=== PATIENT | male | born 1955 | race Hispanic/Latino ===

== ENCOUNTER 2018-11-21 03:13 | Inpatient (IN) | payer MEDICARE ==
[2018-11-21] MEDS ORDERED: SUBLIMAZE IV ONE (03:30)
[2018-11-21] MEDS ORDERED: ZOFRAN IV ONE (03:30)
--- NOTE | 2018-11-21 03:41 | Emergency Department Report ---
HPI - General Chief Complaint: Fall Time Seen by Provider: 11/21/18 03:19 - HPI HPI: Room 18 Patient is a 63-year-old male presenting with a chief complaint cough and pleurisy. Patient states he was diagnosed with pneumonia approximately 1 month ago. Patient states for one month has had a cough productive of sputum as well as some pleurisy. Patient denies fever or rhinorrhea. Patient reportedly lost his footing today outside of his personal nursing home and he fell injuring his back and left forearm. Patient denies loss of consciousness or head injury Location: Lungs, see above Duration: Month Quality: Pleurisy Severity: Moderate Modifying factors: [see above] Context: [see above] Mode of transportation: [not driving] ED Past Medical Hx - Past Medical History Hx Hypertension: Yes Hx Heart Attack/AMI: Yes (x 2) Hx Asthma: Yes Hx COPD: Yes Additional medical history: pneumonia 6 yrs. ago, herniated disc, hep c, MRSA - Surgical History Additional Surgical History: hernia repair, back surgery, rotator cuff repair - Family History Family history: no significant - Social History Smoking Status: Current Every Day Smoker (1/3 pack per day) Substance Use Type: None (denies illicit drug use), Alcohol (rarely) - Medications Home Medications: Home Medications Medication Instructions Recorded Confirmed Last Taken Type ALBUTEROL Inhaler(NF) [VENTOLIN 1 puff IH DAILY 06/26/18 06/26/18 11/20/18 History Inhaler(NF)] Multivit-Mins/Iron/Folic/Lycop 1 each PO DAILY 06/26/18 06/26/18 11/20/18 History [Centrum Men's Tablet] Triamcinolone Aceton 0.1% (Nf) 1 applic TP BID 06/26/18 06/26/18 11/20/18 History [Kenalog (NF)] ALBUTEROL NEB's [Proventil 0.083% 2.5 mg IH Q4HRT PRN #100 nebu 06/30/18 11/20/18 Rx NEBS] Aspirin [Aspirin TAB] 325 mg PO QDAY #30 tablet 06/30/18 11/20/18 Rx Furosemide [Lasix TAB] 20 mg PO QDAY #30 tablet 06/30/18 11/20/18 Rx Ipratropium/Albuterol Sulfate 1 ampul IH QIDRT #60 ampul.neb 06/30/18 11/20/18 Rx [DUONEB *Not for PRN Use*] Losartan [Cozaar] 50 mg PO QDAY #30 tablet 06/30/18 11/20/18 Rx Methadone [Dolophine] 60 mg PO BID #6 tablet 06/30/18 11/20/18 Rx Potassium Chloride [K-Dur] 10 meq PO QDAY #30 tablet 06/30/18 11/20/18 Rx Sertraline [Zoloft] 50 mg PO DAILY #30 tablet 06/30/18 11/20/18 Rx Zolpidem [Ambien] 5 mg PO QHS PRN #30 tablet 06/30/18 11/20/18 Rx oxyCODONE /ACETAMINOPHEN [Percocet 1 tab PO Q6H PRN #12 tablet 06/30/18 11/20/18 Rx 5/325 mg] predniSONE [Deltasone] 20 mg PO QDAY #30 tablet 06/30/18 11/20/18 Rx ED Review of Systems ROS: Stated complaint: FALL Other details as noted in HPI Constitutional: denies: fever Eyes: denies: eye pain Respiratory: cough, shortness of breath Cardiovascular: denies: chest pain Endocrine: no symptoms reported Gastrointestinal: denies: abdominal pain Genitourinary: denies: dysuria Musculoskeletal: back pain Neurological: denies: headache Physical Exam - Physical Exam Vital Signs: Vital Signs 11/21/18 03:23 Temperature 98.4 F Pulse Rate 123 H Respiratory 21 Rate Blood Pressure 118/79 O2 Sat by Pulse 88 Oximetry Physical Exam: GENERAL: The patient is well-developed well-nourished male lying on stretcher not appearing to be in acute distress. [] HEENT: Normocephalic. Atraumatic. Extraocular motions are intact. Patient has moist mucous membranes. NECK: Supple. Trachea midline CHEST/LUNGS: Clear to auscultation, breath sounds equal bilaterally. There is no respiratory distress noted. HEART/CARDIOVASCULAR: Regular. There is tachycardia. There is no gallop rub or murmur. ABDOMEN: Abdomen is soft, nontender. Patient has normal bowel sounds. There is no abdominal distention. SKIN: There is no rash. There is no edema. There is no diaphoresis. NEURO: The patient is awake, alert, and oriented. The patient is cooperative. The patient has no focal neurologic deficits. The patient has normal speech MUSCULOSKELETAL: There is no evidence of acute injury. ED Course Vital Signs 11/21/18 03:23 Temperature 98.4 F Pulse Rate 123 H Respiratory 21 Rate Blood Pressure 118/79 O2 Sat by Pulse 88 Oximetry ED Medical Decision Making - Lab Data Result diagrams: 11/21/18 03:51 11/21/18 03:51 Laboratory Tests 11/21/18 11/21/18 11/21/18 03:51 03:51 03:51 WBC 24.0 H RBC 4.45 Hgb 13.5 Hct 42.6 MCV 96 H MCH 30 MCHC 32 RDW 17.2 H Plt Count 200 PT 14.8 INR 1.12 APTT 27.5 POC ABG pH POC ABG pCO2 POC ABG pO2 POC ABG HCO3 POC ABG Total CO2 POC ABG O2 Sat POC ABG Base Excess FiO2 Sodium 135 L Potassium 4.1 Chloride 92.2 L Carbon Dioxide 29 Anion Gap 18 BUN 17 Creatinine 0.8 Estimated GFR > 60 BUN/Creatinine Ratio 21 Glucose 158 H Calcium 9.2 Total Creatine Kinase 41 L CK-MB (CK-2) 1.3 CK-MB (CK-2) Rel Index 3.1 Troponin T < 0.010 NT-Pro-B Natriuret Pep 384.6 11/21/18 03:56 WBC RBC Hgb Hct MCV MCH MCHC RDW Plt Count PT INR APTT POC ABG pH 7.417 POC ABG pCO2 48.1 H POC ABG pO2 48 L POC ABG HCO3 31.0 POC ABG Total CO2 32 POC ABG O2 Sat 83 POC ABG Base Excess 6 FiO2 32 Sodium Potassium Chloride Carbon Dioxide Anion Gap BUN Creatinine Estimated GFR BUN/Creatinine Ratio Glucose Calcium Total Creatine Kinase CK-MB (CK-2) CK-MB (CK-2) Rel Index Troponin T NT-Pro-B Natriuret Pep - EKG Data -: EKG Interpreted by Me EKG shows normal: sinus rhythm Rate: tachycardia (117 bpm) - EKG Data When compared to previous EKG there are: previous EKG unavailable Interpretation: other (no ischemic changes seen) - Radiology Data Radiology results: report reviewed (CT Chest, CXR), image reviewed (Ct Chest, CXR) interpreted by me: CXR- Left lung mass. No ptx [facility] [address] [place] [address] Cat Scan Report Signed Patient: LIBERTY PUGA JR MR#: [id number] : 1955 Acct:[id number] Age/Sex: 63 / M ADM Date: 11/21/18 Loc: ED Attending Dr: Ordering Physician: MONIQUE GONZALEZ MD Date of Service: 11/21/18 Procedure(s): CT chest wo con Accession Number(s): [id number] cc: MONIQUE GONZALEZ MD FINAL REPORT EXAM: CT CHEST WO CON HISTORY: shortness of breath, left hemithorax mass TECHNIQUE: Routine axial imaging was obtained of the thorax without IV contrast with sagittal and coronal reconstructions. Comparison is made to the previous study of 06/28/2018. FINDINGS: The previous noted 2.9 cm juxtapleural mass in the lingula has enlarged dramatically since the previous examination. It now measures 9.4 cm x 7 cm x 9.2 cm. There are no additional pulmonary masses. The lungs otherwise reveal severe emphysematous changes with bibasilar atelectasis. Pleural fluid is not seen. The heart size is normal. Pericardial fluid is not seen. There is no evidence of hilar or mediastinal adenopathy. The thoracic aorta is normal in caliber. At the thoracic inlet the thyroid gland appears normal. In the upper abdomen the adrenal glands appear normal. There is a stable 4.0 cm cyst in the right kidney. The skeletal structures reveal stable chronic compression fractures in the mid thoracic spine and at the thoracolumbar junction. IMPRESSION: Interval enlargement of the previously described juxtapleural mass in the lingula since 06/28/2018. It now measures 9.4 cm by 7 cm x 9.2 cm and is compatible with malignancy No evidence of mediastinal or hilar adenopathy. Severe emphysematous changes in both lungs with mild bibasilar atelectasis. Pleural fluid is not identified. Stable 4 cm in diameter cortical cyst in the right kidney. Stable chronic compression fractures in the mid thoracic spine and at the thoracolumbar junction. Transcribed By: NAVEEN Dictated By: ANETTE DIAZ MD Electronically Authenticated By: ANETTE DIAZ MD Signed Date/Time: 11/21/18609 DD/ 8 TD/TT: 11/21/18608 - Differential Diagnosis pneumonia, pleurisy, PE, pericarditis Critical care attestation.: If time is entered above; I have spent that time in minutes in the direct care o f this critically ill patient, excluding procedure time. ED Disposition Clinical Impression: Hypoxia, Shortness of breath, Lung mass, Leukocytosis Disposition: OP ADMIT IP TO THIS HOSP Is pt being admited?: Yes Does the pt Need Aspirin: Yes Condition: Fair Time of Disposition: 05:26 (hospitalist paged (Dr Kathy Lagos))
[2018-11-21 04:11] LABS: Hematocrit 42.6 % (35.5-45.6); Hemoglobin 13.5 gm/dl (11.8-15.2); Mean Corpuscular HGB Conc 32 % (32-34); Mean Corpuscular Volume 96 fl (84-94); Platelet Count 200 K/mm3 (140-440); Red Blood Count 4.45 M/mm3 (3.65-5.03); Red Cell Distribution Width 17.2 % (13.2-15.2)
--- NOTE | 2018-11-21 04:19 | XRay Report ---
FINAL REPORT EXAM: XR CHEST 1V AP HISTORY: cough, shortness of breath TECHNIQUE: A portable upright view the chest was obtained and compared to the study of 05/22/2018. FINDINGS: Since the previous study there is now a 10.4 cm round masslike structure superimposed over the middle 3rd of the left hemithorax. The heart size is normal. The lungs are not congested. Pleural fluid is not seen. There EKG leads overlying the chest wall. The skeletal structures reveal generalized osteop enia. IMPRESSION: 10.4 cm round masslike structure superimposed over the middle 3rd of the left hemithorax. This has de veloped since the previous study. Computed tomography of the chest with IV contrast recommended for f jeannette evaluation.
[2018-11-21 04:23] LABS: INR 1.12 (0.87-1.13)
[2018-11-21 04:24] LABS: Partial Thromboplastin Time 27.5 Sec. (24.2-36.6)
[2018-11-21 04:41] LABS: Creatine Kinase MB 1.3 ng/mL (0.0-4.0)
[2018-11-21 04:42] LABS: BUN/Creatinine Ratio 21; Blood Urea Nitrogen 17 mg/dL (9-20); Calcium 9.2 mg/dL (8.4-10.2); Hemolysis Index 10
[2018-11-21] MEDS ORDERED: ROCEPHIN/NS 1 GM/50 ML 1 GM/50 ML BAG IV ONE (05:26)
--- NOTE | 2018-11-21 06:10 | Cat Scan Report ---
FINAL REPORT EXAM: CT CHEST WO CON HISTORY: shortness of breath, left hemithorax mass TECHNIQUE: Routine axial imaging was obtained of the thorax without IV contrast with sagittal and co roya reconstructions. Comparison is made to the previous study of 06/28/2018. FINDINGS: The previous noted 2.9 cm juxtapleural mass in the lingula has enlarged dramatically since the previo us examination. It now measures 9.4 cm x 7 cm x 9.2 cm. There are no additional pulmonary masses. The lungs otherwise reveal severe emphysematous changes with bibasilar atelectasis. Pleural fluid is not seen. The heart size is normal. Pericardial fluid is not seen. There is no evidence of hilar or medi astinal adenopathy. The thoracic aorta is normal in caliber. At the thoracic inlet the thyroid gland appears normal. In the upper abdomen the adrenal glands appear normal. There is a stable 4.0 cm cyst in the right kidney. The skeletal structures reveal stable chronic compression fractures in the mid t horacic spine and at the thoracolumbar junction. IMPRESSION: Interval enlargement of the previously described juxtapleural mass in the lingula since 06/28/2018. I t now measures 9.4 cm by 7 cm x 9.2 cm and is compatible with malignancy No evidence of mediastinal or hilar adenopathy. Severe emphysematous changes in both lungs with mild bibasilar atelectasis. Pleural fluid is not iden tified. Stable 4 cm in diameter cortical cyst in the right kidney. Stable chronic compression fractures in the mid thoracic spine and at the thoracolumbar junction.
[2018-11-21] MEDS ORDERED: PROVENTIL IH PRN (06:46)
[2018-11-21 07:48] LABS: Band Neutrophils # (Manual) 5.5 K/mm3; Basophils % (Manual) 0 % (0.0-1.8); Total Cells Counted 100
[2018-11-21 07:49] LABS: Anisocytosis 1+; Macrocytosis 1+; Target Cells Rare
[2018-11-21 10:39] VITALS: BP 103/69
--- NOTE | 2018-11-21 15:53 | Consultation ---
History of Present Illness - Reason for Consult Consult date: 11/21/18 Requesting physician: MONIQUE GONZALEZ - History of Present Illness Patient is a 63-year-old male also some diagnosis of non-small cell carcinoma, COPD, hypertension, chronic pain syndrome, chronic artery disease also admitted in the hospital last year with concern for CVA but at that time signed into hospice. presenting to the hospital following mechanical fall and exacerbated respiratory distress. Presentation patient reports improvement of the time of my examination reports that he would rather be discharged to continue with hospice with discussed with the hospice team who agreed that the patient can be transferred to the inpatient unit to continue observation and management I did discuss the findings of prior biopsy with the patient with a diagnosis of non-small cell carcinoma the patient verbalizes understanding and is currently stable for transfer. Past History Past Medical History: COPD, hypertension, hyperlipidemia, other (vitals small ce ll cancer) Past Surgical History: No surgical history Social history: smoking. denies: IV drug use Family history: no significant family history Medications and Allergies Allergies Allergy/AdvReac Type Severity Reaction Status Date / Time erythromycin base Allergy Unknown Verified 09/30/15 11:58 [Erythromycin Base] Iodinated Contrast- Oral and Allergy Anaphylaxis Verified 11/21/18 04:55 IV Dye divalproex sodium AdvReac Unknown Verified 09/30/15 11:58 [From Depakote] Home Medications Medication Instructions Recorded Confirmed Last Taken Type ALBUTEROL Inhaler(NF) [VENTOLIN 1 puff IH DAILY 06/26/18 06/26/18 11/20/18 History Inhaler(NF)] Multivit-Mins/Iron/Folic/Lycop 1 each PO DAILY 06/26/18 06/26/18 11/20/18 History [Centrum Men's Tablet] Triamcinolone Aceton 0.1% (Nf) 1 applic TP BID 06/26/18 06/26/18 11/20/18 History [Kenalog (NF)] ALBUTEROL NEB's [Proventil 0.083% 2.5 mg IH Q4HRT PRN #100 nebu 06/30/18 11/20/18 Rx NEBS] Aspirin [Aspirin TAB] 325 mg PO QDAY #30 tablet 06/30/18 11/20/18 Rx Furosemide [Lasix TAB] 20 mg PO QDAY #30 tablet 06/30/18 11/20/18 Rx Ipratropium/Albuterol Sulfate 1 ampul IH QIDRT #60 ampul.neb 06/30/18 11/20/18 Rx [DUONEB *Not for PRN Use*] Losartan [Cozaar] 50 mg PO QDAY #30 tablet 06/30/18 11/20/18 Rx Methadone [Dolophine] 60 mg PO BID #6 tablet 06/30/18 11/20/18 Rx Potassium Chloride [K-Dur] 10 meq PO QDAY #30 tablet 06/30/18 11/20/18 Rx Sertraline [Zoloft] 50 mg PO DAILY #30 tablet 06/30/18 11/20/18 Rx Zolpidem [Ambien] 5 mg PO QHS PRN #30 tablet 06/30/18 11/20/18 Rx oxyCODONE /ACETAMINOPHEN [Percocet 1 tab PO Q6H PRN #12 tablet 06/30/18 11/20/18 Rx 5/325 mg] predniSONE [Deltasone] 20 mg PO QDAY #30 tablet 06/30/18 11/20/18 Rx levoFLOXacin [Levaquin] 750 mg PO QDAY #7 tablet 11/21/18 Unknown Rx Review of Systems Constitutional: anorexia, fatigue Cardiovascular: dyspnea on exertion, no shortness of breath Respiratory: cough, no shortness of breath, no wheezing Gastrointestinal: no nausea, no vomiting, no diarrhea, no change in bowel habits Exam - Physical Exam Narrative exam: VITAL SIGNS: Reviewed. GENERAL: The patient appeared lethergic and cachectiv. Vital signs as documented. HEAD: No signs of head trauma. EYES: Pupils are equal. Extraocular motions intact. EARS: Hearing grossly intact. MOUTH: Oropharynx is normal. NECK: No adenopathy, no JVD. CHEST: Chest with diminshed breath sounds bilaterally. No wheezes, rales, or rhonchi. CARDIAC: Regular rate and rhythm. S1 and S2, without murmurs, gallops, or rubs. VASCULAR: No Edema. Peripheral pulses normal and equal in all extremities. ABDOMEN: Soft, without detectable tenderness. No sign of distention. No rebound or guarding, and no masses palpated. Bowel Sounds normal. MUSCULOSKELETAL: Good range of motion of all major joints. Extremities without clubbing, cyanosis or edema. NEUROLOGIC EXAM: Alert and oriented x 3. No focal sensory or strength deficits. Speech normal. Follows commands. PSYCHIATRIC: Mood normal. SKIN: No rash or lesions. - Constitutional Vitals: Temp Pulse Resp BP Pulse Ox 97.9 F 90 20 103/69 95 11/21/18 10:20 11/21/18 10:20 11/21/18 10:20 11/21/18 10:20 11/21/18 10:20 Results - Labs CBC & Chem 7: 11/21/18 03:51 11/21/18 03:51 Labs: Abnormal lab results 11/21/18 11/21/18 11/21/18 Range/Units 03:51 03:51 03:56 WBC 24.0 H (4.5-11.0) K/mm3 MCV 96 H (84-94) fl RDW 17.2 H (13.2-15.2) % Lymphocytes % (Manual) 5.0 L (13.4-35.0) % Monocytes % (Manual) 8.0 H (0.0-7.3) % Eosinophils % (Manual) 5.0 H (0.0-4.3) % Seg Neutrophils # Man 14.2 H (1.8-7.7) K/mm3 Monocytes # (Manual) 1.9 H (0.0-0.8) K/mm3 Eosinophils # (Manual) 1.2 H (0.0-0.4) K/mm3 POC ABG pCO2 48.1 H (35-45) POC ABG pO2 48 L (80-105) Sodium 135 L (137-145) mmol/L Chloride 92.2 L (98-107) mmol/L Glucose 158 H (75-100) mg/dL Total Creatine Kinase 41 L (55-170) units/L - Imaging and Cardiology CT scan - chest: image reviewed (lung mass) Assessment and Plan Patient is a 63-year-old male also some diagnosis of non-small cell carcinoma, COPD, hypertension, chronic pain syndrome, chronic artery disease also admitted in the hospital last year with concern for CVA but at that time signed into hospice. presenting to the hospital following mechanical fall and exacerbated respiratory distress. Presentation patient reports improvement of the time of my examination reports that he would rather be discharged to continue with hospice with discussed with the hospice team who agreed that the patient can be transferred to the inpatient unit to continue observation and management I did discuss the findings of prior biopsy with the patient with a diagnosis of non-small cell carcinoma the patient verbalizes understanding and is currently stable for transfer. Pneumonia Non small cell carcenoma No evidence of sepsis Acute COPD exacerbation-Resolving Severe of Emphysema HTN chronic pain syndrom CAD Hepatitis C T9 and lumbar impression fractures Plan patient palced on levaquin per discussion with Case management Patient can be transferred to the inpatient hospice unit. plan discussed with the patient, nursing and case management and all agreeable with the plan
--- NOTE | 2018-12-14 07:33 | Addendum Note ---
- Addendum Date: 12/14/18 Note: - History of Present Illness Patient is a 63-year-old male also some diagnosis of non-small cell carcinoma, COPD, hypertension, chronic pain syndrome, chronic artery disease also admitted in the hospital last year with concern for CVA but at that time signed into hospice. presenting to the hospital following mechanical fall and exacerbated respiratory distress. Presentation patient reports improvement of the time of my examination reports that he would rather be discharged to continue with hospice with discussed with the hospice team who agreed that the patient can be transferred to the inpatient unit to continue observation and management I did discuss the findings of prior biopsy with the patient with a diagnosis of non-small cell carcinoma the patient verbalizes understanding and is currently stable for transfer. Past History Past Medical History: COPD, hypertension, hyperlipidemia, other (vitals small cell cancer) Past Surgical History: No surgical history Social history: smoking. denies: IV drug use Family history: no significant family history Medications and Allergies Allergies Allergy/AdvReac Type Severity Reaction Status Date / Time erythromycin base Allergy Unknown Verified 09/30/15 11:58 [Erythromycin Base] Iodinated Contrast- Oral and Allergy Anaphylaxis Verified 11/21/18 04:55 IV Dye divalproex sodium AdvReac Unknown Verified 09/30/15 11:58 [From Depakote] Home Medications Medication Instructions Recorded Confirmed Last Taken Type ALBUTEROL Inhaler(NF) [VENTOLIN 1 puff IH DAILY 06/26/18 06/26/18 11/20/18 History Inhaler(NF)] Multivit-Mins/Iron/Folic/Lycop 1 each PO DAILY 06/26/18 06/26/18 11/20/18 Hi story [Centrum Men's Tablet] Triamcinolone Aceton 0.1% (Nf) 1 applic TP BID 06/26/18 06/26/18 11/20/18 History [Kenalog (NF)] ALBUTEROL NEB's [Proventil 0.083% 2.5 mg IH Q4HRT PRN #100 nebu 06/30/18 11/20/18 Rx NEBS] Aspirin [Aspirin TAB] 325 mg PO QDAY #30 tablet 06/30/18 11/20/18 Rx Furosemide [Lasix TAB] 20 mg PO QDAY #30 tablet 06/30/18 11/20/18 Rx Ipratropium/Albuterol Sulfate 1 ampul IH QIDRT #60 ampul.neb 06/30/18 11/20/18 Rx [DUONEB *Not for PRN Use*] Losartan [Cozaar] 50 mg PO QDAY #30 tablet 06/30/18 11/20/18 Rx Methadone [Dolophine] 60 mg PO BID #6 tablet 06/30/18 11/20/18 Rx Potassium Chloride [K-Dur] 10 meq PO QDAY #30 tablet 06/30/18 11/20/18 Rx Sertraline [Zoloft] 50 mg PO DAILY #30 tablet 06/30/18 11/20/18 Rx Zolpidem [Ambien] 5 mg PO QHS PRN #30 tablet 06/30/18 11/20/18 Rx oxyCODONE /ACETAMINOPHEN [Percocet 1 tab PO Q6H PRN #12 tablet 06/30/18 11/20/18 Rx 5/325 mg] predniSONE [Deltasone] 20 mg PO QDAY #30 tablet 06/30/18 11/20/18 Rx levoFLOXacin [Levaquin] 750 mg PO QDAY #7 tablet 11/21/18 Unknown Rx Review of Systems Constitutional: anorexia, fatigue Cardiovascular: dyspnea on exertion, no shortness of breath Respiratory: cough, no shortness of breath, no wheezing Gastrointestinal: no nausea, no vomiting, no diarrhea, no change in bowel habits Exam - Physical Exam Narrative exam: VITAL SIGNS: Reviewed. GENERAL: The patient appeared lethergic and cachectiv. Vital signs as documented. HEAD: No signs of head trauma. EYES: Pupils are equal. Extraocular motions intact. EARS: Hearing grossly intact. MOUTH: Oropharynx is normal. NECK: No adenopathy, no JVD. CHEST: Chest with diminshed breath sounds bilaterally. No wheezes, rales, or rhonchi. CARDIAC: Regular rate and rhythm. S1 and S2, without murmurs, gallops, or rubs. VASCULAR: No Edema. Peripheral pulses normal and equal in all extremities. ABDOMEN: Soft, without detectable tenderness. No sign of distention. No rebound or guarding, and no masses palpated. Bowel Sounds normal. MUSCULOSKELETAL: Good range of motion of all major joints. Extremities without clubbing, cyanosis or edema. NEUROLOGIC EXAM: Alert and oriented x 3. No focal sensory or strength deficits. Speech normal. Follows commands. PSYCHIATRIC: Mood normal. SKIN: No rash or lesions. - Constitutional Vitals: Temp Pulse Resp BP Pulse Ox 97.9 F 90 20 103/69 95 11/21/18 10:20 11/21/18 10:20 11/21/18 10:20 11/21/18 10:20 11/21/18 10:20 Results - Labs CBC & Chem 7: 11/21/18 03:51 11/21/18 03:51 Labs: Abnormal lab results 11/21/18 11/21/18 11/21/18 Range/Units 03:51 03:51 03:56 WBC 24.0 H (4.5-11.0) K/mm3 MCV 96 H (84-94) fl RDW 17.2 H (13.2-15.2) % Lymphocytes % (Manual) 5.0 L (13.4-35.0) % Monocytes % (Manual) 8.0 H (0.0-7.3) % Eosinophils % (Manual) 5.0 H (0.0-4.3) % Seg Neutrophils # Man 14.2 H (1.8-7.7) K/mm3 Monocytes # (Manual) 1.9 H (0.0-0.8) K/mm3 Eosinophils # (Manual) 1.2 H (0.0-0.4) K/mm3 POC ABG pCO2 48.1 H (35-45) POC ABG pO2 48 L (80-105) Sodium 135 L (137-145) mmol/L Chloride 92.2 L (98-107) mmol/L Glucose 158 H (75-100) mg/dL Total Creatine Kinase 41 L (55-170) units/L - Imaging and Cardiology CT scan - chest: image reviewed (lung mass) Assessment and Plan Patient is a 63-year-old male also some diagnosis of non-small cell carcinoma, COPD, hypertension, chronic pain syndrome, chronic artery disease also admitted in the hospital last year with concern for CVA but at that time signed into hospice. presenting to the hospital following mechanical fall and exacerbated respiratory distress. Presentation patient reports improvement of the time of my examination reports that he would rather be discharged to continue with hospice with discussed with the hospice team who agreed that the patient can be transferred to the inpatient unit to continue observation and management I did discuss the findings of prior biopsy with the patient with a diagnosis of non-small cell carcinoma the patient verbalizes understanding and is currently stable for transfer. Pneumonia Non small cell carcenoma No evidence of sepsis Acute COPD exacerbation-Resolving Severe of Emphysema HTN chronic pain syndrom CAD Hepatitis C T9 and lumbar impression fractures Plan patient placed on levaquin per discussion with Case management Patient can be transferred to the inpatient hospice unit BUT Following Hospice team arrangement with social science instructor, and based on their assessment, patient was discharged home to be followed with Hospice team
== END 2018-11-21 09:06 | disposition hospice, home (50) | DRG 180 ==
LOC: ED 03:13 → 3A 06:45
PROVIDERS: ADMIT Internal Medicine; ATTEND Internal Medicine
PROC: 4A033R1 Measurement of Arterial Saturation, Peripheral, Percutaneous Approach (ICD-10-PCS; principal; 2018-11-21)
DX: C34.90 Malignant neoplasm of unspecified part of unspecified bronchus or lung (principal); J18.9 Pneumonia, unspecified organism; S22.078A Other fracture of T9-T10 vertebra, initial encounter for closed fracture; S32.008A Other fracture of unspecified lumbar vertebra, initial encounter for closed fracture; J44.1 Chronic obstructive pulmonary disease with (acute) exacerbation; J44.0 Chronic obstructive pulmonary disease with (acute) lower respiratory infection; D72.829 Elevated white blood cell count, unspecified; I10 Essential (primary) hypertension; G89.4 Chronic pain syndrome; I25.10 Atherosclerotic heart disease of native coronary artery without angina pectoris; B19.20 Unspecified viral hepatitis C without hepatic coma; F17.200 Nicotine dependence, unspecified, uncomplicated; R09.02 Hypoxemia; Z91.041 Radiographic dye allergy status; W18.39XA Other fall on same level, initial encounter; Z88.1 Allergy status to other antibiotic agents; Z79.899 Other long term (current) drug therapy; Z79.82 Long term (current) use of aspirin; Z86.14 Personal history of Methicillin resistant Staphylococcus aureus infection; I25.2 Old myocardial infarction; Z87.01 Personal history of pneumonia (recurrent); Z72.89 Other problems related to lifestyle; Y93.89 Activity, other specified; Y92.098 Other place in other non-institutional residence as the place of occurrence of the external cause; Y99.8 Other external cause status
CPT/HCPCS: 36415; 71045; 71250; 80048; 82550; 82553; 82803; 83880; 84484; 85007; 85025; 85610; 85730; 93005; 93010; G0378; J0696; J2405; J3010

== ENCOUNTER 2018-11-27 21:23 | Emergency (ER) | payer MEDICARE ==
[2018-11-27] MEDS ORDERED: MORPHINE IV ONE (21:52)
[2018-11-27] MEDS ORDERED: DUONEB *Not for PRN Use IH ONE (21:52)
--- NOTE | 2018-11-27 21:56 | Emergency Department Report ---
HPI - General Chief Complaint: Seizure Time Seen by Provider: 11/27/18 21:27 - HPI HPI: 63-year-old male presents to the emergency department via EMS from his personal fpc with complaint of generalized body pains, nausea, coughing, and he says he is having "withdrawal from my pain meds." Patient says that he is on morphine and methadone daily for his chronic back pain and emphysema. He says that his landlord allegedly "stole my meds" by signing for them and not giving them to him. He says that the landlord denies this. Patient also says that he is dealing with pneumonia that he got diagnosed with about 6 weeks ago. The patient was here about one week ago for some coughing, shortness of breath and was discharged home after a negative workup. Patient does have a history of chronic back pain, COPD/emphysema, hypertension, previous A. fib. ED Past Medical Hx - Past Medical History Hx Hypertension: Yes Hx Heart Attack/AMI: Yes (x 2) Hx Congestive Heart Failure: No Hx Diabetes: No Hx Asthma: Yes Hx COPD: Yes Hx HIV: No Additional medical history: pneumonia 6 yrs. ago, herniated disc, hep c, MRSA - Surgical History Additional Surgical History: hernia repair, back surgery, rotator cuff repair - Social History Smoking Status: Current Every Day Smoker Substance Use Type: None - Medications Home Medications: Home Medications Medication Instructions Recorded Confirmed Last Taken Type ALBUTEROL Inhaler(NF) [VENTOLIN 1 puff IH DAILY 06/26/18 06/26/18 11/20/18 History Inhaler(NF)] Multivit-Mins/Iron/Folic/Lycop 1 each PO DAILY 06/26/18 06/26/18 11/20/18 History [Centrum Men's Tablet] Triamcinolone Aceton 0.1% (Nf) 1 applic TP BID 06/26/18 06/26/18 11/20/18 History [Kenalog (NF)] ALBUTEROL NEB's [Proventil 0.083% 2.5 mg IH Q4HRT PRN #100 nebu 06/30/18 11/20/18 Rx NEBS] Aspirin [Aspirin TAB] 325 mg PO QDAY #30 tablet 06/30/18 11/20/18 Rx Furosemide [Lasix TAB] 20 mg PO QDAY #30 tablet 06/30/18 11/20/18 Rx Ipratropium/Albuterol Sulfate 1 ampul IH QIDRT #60 ampul.neb 06/30/18 11/20/18 Rx [DUONEB *Not for PRN Use*] Losartan [Cozaar] 50 mg PO QDAY #30 tablet 06/30/18 11/20/18 Rx Methadone [Dolophine] 60 mg PO BID #6 tablet 06/30/18 11/20/18 Rx Potassium Chloride [K-Dur] 10 meq PO QDAY #30 tablet 06/30/18 11/20/18 Rx Sertraline [Zoloft] 50 mg PO DAILY #30 tablet 06/30/18 11/20/18 Rx Zolpidem [Ambien] 5 mg PO QHS PRN #30 tablet 06/30/18 11/20/18 Rx oxyCODONE /ACETAMINOPHEN [Percocet 1 tab PO Q6H PRN #12 tablet 06/30/18 11/20/18 Rx 5/325 mg] predniSONE [Deltasone] 20 mg PO QDAY #30 tablet 06/30/18 11/20/18 Rx levoFLOXacin [Levaquin] 750 mg PO QDAY #7 tablet 11/21/18 Unknown Rx Nystatin 5 ml PO QID #200 oral.susp 11/28/18 Unknown Rx ED Review of Systems ROS: Stated complaint: PAIN ALL OVER Other details as noted in HPI Comment: All other systems reviewed and negative Constitutional: denies: chills, fever Eyes: denies: eye pain, vision change ENT: denies: ear pain, throat pain Respiratory: cough, shortness of breath Cardiovascular: denies: palpitations, edema Gastrointestinal: nausea. denies: diarrhea Genitourinary: denies: dysuria, discharge Musculoskeletal: back pain, myalgia. denies: joint swelling Skin: denies: rash, lesions Neurological: denies: headache, numbness Physical Exam - Physical Exam Vital Signs: Vital Signs 11/27/18 21:40 Temperature 98.3 F Pulse Rate 101 H Respiratory 16 Rate Blood Pressure 113/77 O2 Sat by Pulse 95 Oximetry Physical Exam: GENERAL: The patient appears thin and frail. HEENT: Normocephalic. Atraumatic. Patient has moist mucous membranes. EYES: Extraocular motions are intact. Pupils are equal and reactive to light bilaterally. The patient has some thrush to the tongue and hard palate. NECK: Supple. Trachea is midline. CHEST/LUNGS: Mild wheezing throughout the chest. No tachypnea or accessory muscle use. There is no respiratory distress noted. HEART/CARDIOVASCULAR: Regular. There is no tachycardia. There is no obvious murmur. ABDOMEN: Abdomen is soft, nontender. Patient has normal bowel sounds. There is no abdominal distention. SKIN: Skin is warm and dry. NEURO: The patient is awake, alert, and cooperative. The patient has no focal neurologic deficits. The patient has normal speech. MUSCULOSKELETAL: There is no tenderness or deformity. There is no evidence of acute injury. ED Course Vital Signs 11/27/18 21:40 Temperature 98.3 F Pulse Rate 101 H Respiratory 16 Rate Blood Pressure 113/77 O2 Sat by Pulse 95 Oximetry - Consultations Consultation #1: The patient told me that the name of his hospice company is [facility]. He was living in a personal fpc and getting a visit from them about once or twice a week. I spoke with a nurse with that hospice company, [employer], who has gotten the patient accepted into their inpatient hospice program. I spoke with the patient and he is pleased with this. [facility] will be here in about 30 minutes. 11/28/18 06:56 ED Medical Decision Making - Lab Data Result diagrams: 11/27/18 22:33 11/28/18 00:54 - EKG Data -: EKG Interpreted by Me EKG shows normal: sinus rhythm, axis, intervals, QRS complexes, ST-T waves Rate: tachycardia (108 bpm) - EKG Data When compared to previous EKG there are: previous EKG unavailable Interpretation: normal EKG (with sinus tach at 108 bpm) - Radiology Data Radiology results: report reviewed EXAM: XR CHEST 1V AP HISTORY: Chest Pain TECHNIQUE: Chest single AP PRIORS: Comparison is dated November 21, 2018 FINDINGS: There is a large left pulmonary mass as previously noted. Cardiac and mediastinal contours are unchanged. Mild blunting of the costophrenic angles noted. Pulmonary vasculature is unremarkable. Overall appearance is stable from prior exam. IMPRESSION: Large left-sided pulmonary mass Findings likely reflecting small bilateral pleural effusions Transcribed By: STAR Dictated By: ELIZABETH BLAKELY MD Electronically Authenticated By: ELIZABETH BLAKELY MD Signed Date/Time: 11/27/18 8756 - Medical Decision Making She came in with complaint of body aches, shortness of breath and what he says his withdrawal from lack of pain medication. He says that he is on methadone and morphine as part of his hospice for his COPD and lung mass. patient has a leukocytosis of 24,000 that is consistent with his previous visit here 1 week ago. Chest x-ray did not show any signs of any pneumonia that appears consistent with his previously known left lung mass. He was given a dose of steroids for some mild bronchospasm as well as a DuoNeb treatment. Patient was given a dose of pain medication. He was reevaluated multiple times over multiple hours and has remained stable and appears to be resting comfortably. The patient is in hospice and I contacted the hospice company [facility] has now arranged for the patient to be transported to an inpatient hospice facility that they run. The patient is pleased with this. He has been given some nystatin swish and spit for some oral thrush. - Differential Diagnosis COPD, malignancy, pneumonia, CHF Critical Care Time: No Critical care attestation.: If time is entered above; I have spent that time in minutes in the direct care of this critically ill patient, excluding procedure time. ED Disposition Clinical Impression: Lung mass, Thrush Chronic obstructive pulmonary disease Qualifiers: COPD type: unspecified COPD Qualified Code(s): J44.9 - Chronic obstructive pulmonary disease, unspecified Disposition: DC/TX-70 ANOTHER TYPE HLTHCARE Is pt being admited?: No Condition: Fair Instructions: Oral Candidiasis (ED), Chronic Obstructive Pulmonary Disease (ED) Prescriptions: Nystatin 5 ml PO QID #200 oral.susp Time of Disposition: 07:04
[2018-11-27 22:57] LABS: Hematocrit 41.2 % (35.5-45.6); Hemoglobin 13.2 gm/dl (11.8-15.2); Mean Corpuscular HGB Conc 32 % (32-34); Mean Corpuscular Volume 98 fl (84-94); Platelet Count 166 K/mm3 (140-440); Red Blood Count 4.22 M/mm3 (3.65-5.03); Red Cell Distribution Width 17.8 % (13.2-15.2)
--- NOTE | 2018-11-27 23:04 | XRay Report ---
FINAL REPORT EXAM: XR CHEST 1V AP HISTORY: Chest Pain TECHNIQUE: Chest single AP PRIORS: Comparison is dated November 21, 2018 FINDINGS: There is a large left pulmonary mass as previously noted. Cardiac and mediastinal contours are unchan ged. Mild blunting of the costophrenic angles noted. Pulmonary vasculature is unremarkable. Overall a ppearance is stable from prior exam. IMPRESSION: Large left-sided pulmonary mass Findings likely reflecting small bilateral pleural effusions
[2018-11-28] MEDS ORDERED: DUONEB *Not for PRN Use IH ONE (00:18)
[2018-11-28 00:24] LABS: BUN/Creatinine Ratio TNR; Blood Urea Nitrogen TNR mg/dL (9-20)
[2018-11-28 00:25] LABS: Alanine Aminotransferase TNR units/L (7-56); Albumin TNR g/dL (3.9-5); Calcium TNR mg/dL (8.4-10.2)
[2018-11-28 00:26] LABS: Hemolysis Index TNR
[2018-11-28 00:28] LABS: Band Neutrophils # (Manual) 0.5 K/mm3; Eosinophils % (Manual) 0 % (0.0-4.3); Total Cells Counted 100
[2018-11-28 00:29] LABS: Anisocytosis 1+; Basophils % (Manual) 0 % (0.0-1.8); Hypochromasia 1+; Macrocytosis 1+; Platelet Estimate Appe
[2018-11-28 01:28] LABS: Alanine Aminotransferase 30 units/L (7-56); Albumin 1.8 g/dL (3.9-5); BUN/Creatinine Ratio 26; Blood Urea Nitrogen 13 mg/dL (9-20); Calcium 8.8 mg/dL (8.4-10.2); Hemolysis Index 73
[2018-11-28] MEDS ORDERED: NACL 0.9% 1000 ML 1,000 ML IV ONE ×2 (01:40→04:52)
[2018-11-28] MEDS ORDERED: SOLU-Medrol IV ONE (04:52)
[2018-11-28 07:39] VITALS: BP 104/65
== END 2018-11-28 07:40 | disposition other institution (70) ==
LOC: ED 21:23
DX: J44.9 Chronic obstructive pulmonary disease, unspecified (principal); B37.0 Candidal stomatitis; R91.8 Other nonspecific abnormal finding of lung field; I10 Essential (primary) hypertension; I25.2 Old myocardial infarction; F17.200 Nicotine dependence, unspecified, uncomplicated; Z79.899 Other long term (current) drug therapy; Z88.1 Allergy status to other antibiotic agents; Z88.8 Allergy status to other drugs, medicaments and biological substances; Z91.041 Radiographic dye allergy status
CPT/HCPCS: 36415; 71045; 80053; 82140; 83880; 85007; 85025; 93005; 93010; 94640; 96374; 96375; 99284; J2270; J2930; J7030; 84484